=== PATIENT | female | born 1960 | race Caucasian/White ===

== ENCOUNTER → 2022-06-17 11:42 | Outpatient (CLI) | payer OTHER, SELFPAY ==
[2022-06-17 12:54] LABS: COVID19 -Nasal RAPID Negative (Negative)
== END ==
PROVIDERS: Referring Provider Orthopaedic Surgery Orthopaedic Surgery of the Spine; Visit Provider Orthopaedic Surgery Orthopaedic Surgery of the Spine
DX: Z20.822 Contact with and (suspected) exposure to COVID-19 (principal)
CPT/HCPCS: 87635; C9803

== ENCOUNTER 2022-06-19 11:15 | Inpatient (IN) | payer OTHER, SELFPAY ==
[2022-06-11 09:46] VITALS: BMI 18.6
[2022-06-19] VITALS (17 sets, daily range): BP systolic 117–171; BP diastolic 64–106; PULSE 67–101; RESP 14–20; TEMP 36.2–37.1; O2SAT 95–100; BMI 18.9; BMI 20.1
--- NOTE | 2022-06-19 | DI.RAD.S_ITS ---
PROCEDURE: XR CERVICAL SPINE 2V OR 3V INDICATIONS: C5-6 ACDF TECHNIQUE: 2 view(s) of the cervical spine were acquired. COMPARISON: None. FINDINGS: Intraoperative images demonstrate anterior fusion at C5-6 with intervertebral spacer. There is good anatomic alignment. IMPRESSION: Intraoperative fusion images. Dictated by: Danisha Funes M.D. on 06/19/2022 at 15:37 Approved by: Danisha Funes M.D. on 06/19/2022 at 15:37
[2022-06-19] MEDS: LACTATED RINGERS 1,000 ML 42 ML IV (11:36)
--- NOTE | 2022-06-19 12:09 | PM.PREOP ---
Pre-operative Note COVID-19 COVID-19 status: Negative Result date/Date tested (Pos, Neg/Pending): 06/19/22 Criteria for continued procedure: Expected advancement of disease process, Possibility delay results in more complex future surgery or treatment, Increased loss of function, Continuing or worsening of significant or severe pain, Deterioration of the patient's condition or overall health and Delay expected to result in less-positive ultimate med/surg outcome Interval Note History & Physical reviewed/Exam performed by Physician: Yes Changes to H&P: No
[2022-06-19] MEDS: SCOPOLAMINE 1 PATCH TOP (12:44)
[2022-06-19] MEDS: CEFAZOLIN 2 GM/100 ML PREMIX 100 ML IV (13:05)
[2022-06-19] MEDS: BUPIVACAINE 0.25% (PF) 30 ML, EPINEPHrine 0.3 MG INJ (13:15)
--- NOTE | 2022-06-19 13:21 | SUR.OPER ---
Supine on padded OR bed, head on gel donut, arms padded and tucked at sides, legs uncrossed, safety belt at thigh, tape over blanket over lower legs . Cloth tape used to hold traction down on shoulders.
--- NOTE | 2022-06-19 14:37 | P.OP_ITS ---
Operative Date/Time/Diagnoses Date of procedure: 06/19/22 Time of procedure: 12:30 Pre-op diagnosis: 1. C5-6 spinal stenosis 2. Cervical radiculopathy Post-op diagnosis: same Procedure & Clinicians Procedure: 1. C5-6 anterior cervical diskectomy and fusion 2. C5-6 anterior interbody cage placement 3. C5-6 anterior instrumentation with plate and screw placement in C5 and C6 vertebrae 4. Utilization of microsurgical technique and operating microscope Same procedure as scheduled: Yes Indications: Patient has been having neck pain and worsening cervical radiculopathy with MRI showing C5-6 spinal stenosis with correlating radiculopathy. Patient failed multiple conservative management with worsening pain weakness and numbness in her upper extremity. Patient has been having difficulty performing activity of daily living. After discussing risks benefits of treatment options, patient elected proceed with surgery. Surgeon: Naomy Simms Operations Administrator: Elroy Ruiz Click Yes if Unassisted: No Anesthesia Type: General Operative Notes Closure Type: primary Specimen(s): none sent Prosthetic devices, grafts, tissues, transplants, or devices: Globus Extend Plate, Titanium cage Estimated Blood Loss (mL): 5 Blood products transfused: none Procedure in detail: Patient was seen in the preoperative area. Risks and benefits of the surgery was discussed with the patient. Informed consent was obtained from the patient and placed in the chart. Surgical site was marked. Patient was taken to the operative room. General anesthesia was administered. Prophylactic antibiotic was given to the patient less than 30 min before the incision was made. Patient was placed into a supine position on a radiolucent table. Patient's shoulders were taped down to allow proper C-arm imaging. Anterior cervical area was prepped and draped in a sterile fashion. Time-out was performed at this time. Using lateral C-arm imaging, the level between C5 and C6 was identified and marked on patient's neck. A oblique incision from midline towards medial border of sternocleidomastoid muscle was made. The platysma muscle was incised in line with skin incision. Metzenbaum scissor was used to develop the plane between the medial border of sternocleidomastoid d and the strap muscles medially. The carotid sheath and its contents were identified and protected behind the hand- held retractor during the entire case. The plane between the carotid sheath and strap muscles was developed with Metzenbaum scissors. Dissection was made down to the level of the anterior cervical fascia. Longus colli muscle was incised on the anterior aspect of vertebral bodies bilaterally from C5-C6. Spinal needle was placed into the C5-6 disc space and confirmed with lateral C-arm imaging. Using microsurgical technique and operative microscope, anterior cervical diskectomy was performed at C5-6 level. This was done by removing the disc material, removing the anterior and posterior osteophytes posterior longitudinal ligaments along with performing bilateral foraminotomies at the C5-6 levels. Patient was found to have severe foraminal stenosis. Patient's stenosis was fully decompressed after decompression was completed. After the diskectomy was completed, an anterior interbody cage was obtained. The cage was packed with DBM bone grafting material. One cage each along with the bone grafting material was then packed into the interbody space at C5-6 along with an anterior cervical plate. The cervical plate was stabilized to the C5-C6 vertebrae using screws. After confirming placement of the hardware with AP and lateral C-arm imaging, the screws were locked into the plate using the locking mechanism and torque limiting screwdriver. After the hardware was placed and confirmed with AP and lateral C-arm imaging, the wound was irrigated with sterile normal saline. The platysma muscle and the subcutaneous tissue was closed with 2-0 Vicryl. The skin was closed with 4-0 Monocryl and Steri-Strips. Patient tolerated the procedure well. Patient was transferred recovery room in stable condition. There were no complications. Complications: none Post-operative Condition: stable Disposition: PACU Plan for aftercare: Discharge to home
[2022-06-19] MEDS: HYDROMORPHONE 2 MG INJ IV ×3 (14:49→15:02)
[2022-06-19] MEDS: hydrOXYzine 50 MG/ML INJ 25 MG IM (15:09)
[2022-06-19] MEDS: LORazepam 2 MG/ML INJ 0.5 MG IV (15:13)
[2022-06-19] MEDS: SODIUM CHLORIDE 0.9% 1,000 ML 100 ML IV (16:45)
[2022-06-19] MEDS: HYDROCODONE/ACET 5/325 TABLET 1 TAB PO ×2 (18:02→21:35)
[2022-06-19] MEDS: hydrOXYzine pamoate 25 MG CAPSULE PO (18:02)
[2022-06-19] MEDS: ONDANSETRON 4 MG/2 ML INJ IV (18:08)
[2022-06-19] MEDS: CEFAZOLIN VIAL 1 GM in SODIUM CHLORIDE 0.9% 100 ML IV (20:35)
[2022-06-19] MEDS: DOCUSATE 100 MG CAPSULE PO (20:35)
[2022-06-20 00:39] VITALS: BP 127/64; PULSE 71; RESP 18; TEMP 36.5; O2SAT 96
[2022-06-20] MEDS: hydrOXYzine pamoate 25 MG CAPSULE PO ×3 (00:42→10:57)
[2022-06-20] MEDS: HYDROCODONE/ACET 5/325 TABLET 1 TAB PO ×2 (01:13→06:15)
[2022-06-20] MEDS: CEFAZOLIN VIAL 1 GM in SODIUM CHLORIDE 0.9% 100 ML IV (05:22)
[2022-06-20 06:11] VITALS: BP 118/61; PULSE 72; RESP 16; TEMP 36.7; O2SAT 96
[2022-06-20] MEDS: HYDROMORPHONE 0.5 MG INJ 0.2 MG IV (07:54)
[2022-06-20 08:28] VITALS: BP 116/68; PULSE 69; RESP 17; TEMP 37.1; O2SAT 98
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
[2022-06-20] MEDS: HYDROMORPHONE 2 MG TABLET PO ×2 (09:35→12:22)
[2022-06-20] MEDS: ATORVASTATIN 20 MG TABLET PO (09:35)
[2022-06-20] MEDS: LEVOTHYROXINE 88 MCG TABLET PO (09:35)
[2022-06-20] MEDS: DOCUSATE 100 MG CAPSULE PO (09:35)
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
[2022-06-20] MEDS: ACETAMINOPHEN 325 MG TABLET 650 MG PO (10:56)
[2022-06-20] MEDS: HYDROMORPHONE 0.5 MG INJ IV (10:57)
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
[2022-06-20] MEDS: TIZANIDINE 4 MG TABLET 2 MG PO (12:22)
== END 2022-06-20 15:02 | disposition home or self-care (01) | DRG 321 ==
PROVIDERS: Admitting Provider Orthopaedic Surgery Orthopaedic Surgery of the Spine; PCP Student in an Organized Health Care Education/Training Program; Referring Provider Preventive Medicine Occupational Medicine; Visit Provider Orthopaedic Surgery Orthopaedic Surgery of the Spine
PROC: 0RG10A0 Fusion of Cervical Vertebral Joint with Interbody Fusion Device, Anterior Approach, Anterior Column, Open Approach (ICD-10-PCS; principal; 2022-06-19 12:45)
DX: M48.02 Spinal stenosis, cervical region (principal); M54.12 Radiculopathy, cervical region; E78.5 Hyperlipidemia, unspecified; E03.9 Hypothyroidism, unspecified; Z20.822 Contact with and (suspected) exposure to COVID-19
CPT/HCPCS: 72040; 76000; 82962; 97162; 97165; 97535; C1713; J0171; J0330; J0690; J1170; J2060; J2405; J2704; J3010; J3410

== ENCOUNTER 2025-01-18 08:50 | Outpatient (CLI) | payer OTHER, SELFPAY ==
[2022-06-19 16:17] VITALS: BMI 20.1
[2025-01-18] VITALS (17 sets, daily range): BP systolic 68–148; BP diastolic 50–78; PULSE 48–62; RESP 14–16; TEMP 36.5; O2SAT 97–100
[2025-01-18] MEDS: MIDAZOLAM 2 MG/2 ML VIAL IV (09:34)
[2025-01-18] MEDS: DEXAMETHASONE 10 MG/ML VIAL 30 MG INJ (09:41)
[2025-01-18] MEDS: iopamidoL 15 ML VIAL 3 ML INJ (09:41)
[2025-01-18] MEDS: BUPIVACAINE 0.25% (PF) VIAL 2 ML INJ (09:42)
--- NOTE | 2025-01-18 09:57 | P.PCN_ITS ---
Date/Time/Diagnoses Date of procedure: 01/18/25 Time of procedure: 09:57 Pre-procedure diagnosis: 1. CERVICAL STENOSIS, 2. CERVICAL HNP WITH UPPER EXTREMITY RADICULAR FEATURES Post-procedure diagnosis: same Procedure Notes Procedure: 1. FLUORSCOPICALLY GUIDED CONTRAST CONTROLLED INTERLAMINAR EPIDURAL STEROID INJECTION - C6/7 TL DANAY Indications: Zoe is referred by Dr. Mclaughlin for treatment of Cervical HNP with Upper Extremity Paresthesias. Physician: Agus Crain Total Fluoroscopy time (seconds): 31 Total sedation minutes: 18 Complications: none Procedure in detail & Post-procedure care: FINDINGS Cervical Stenosis due to disc deterioration and nerve root irritation and nerve root irritation DESCRIPTION OF PROCEDURE Fluoroscopically guided, contrast-controlled C6/7 translaminar epidural steroid injection with conscious sedation. Following review of allergy and review of potential side effects and complications, including, but not necessarily limited to, infection, allergic reaction, local tissue breakdown, temporary as well as permanent nerve injury, stroke, paralysis, and possible , the patient indicated that patient understood and agreed to proceed. An informed consent document was signed by the patient, witnessed by a nurse, and placed in the patient's chart. Additionally, other treatment options including modalities, medications, and physical therapy were reviewed with the patient. After review of previous anaesthesic history and IV conscious sedation the patient was deemed safe to proceed with today?s procedure with IV conscious sedation as ASA class II designation. Safety time-out was performed to confirm patient ID, procedure to be performed and site of procedure. IV sedation was accomplished with a combination of 2mg of Versed administered by the RN after DO order, titrated to patient comfort during the course of the procedure while the patient remained responsive to all verbal commands. In the prone position, following sterile prep and drape of the cervical region, the C6/7 translaminar space was identified fluoroscopically. The skin was anesthetized via a 25-gauge 1.5-inch needle with 1% lidocaine solution. At this point, a 25-gauge, 2.5-inch short bevel spinal needle was atraumatically introduced and advanced under fluoroscopic guidance into epidural space at the C6/7 translaminar space. Depth was confirmed on lateral view. Radiological data, including multiple fluoroscopic views of the cervical spine, reveal a spinal needle at the C6/7 translaminar space. Lateral views then show placement of the needle in the epidural space. Subsequent views show contrast material flowing superiorly and inferiorly in the epidural space. DSA fluoroscopy with live contrast injection, once again, confirmed no vascular or intrathecal uptake. At this point, using loss of resistance technique with saline and air, the epidural space was entered. Following negative aspiration, injection of approximately 1.5 cc of Isovue-200 with live fluoroscopy in the AP view confirmed epidural flow in the epidural space without vascular or intrathecal uptake observed. Subsequently, a test dose of 1 cc of 1% lidocaine solution was injected and patient was observed for two minutes without signs or symptoms of complications, including abdominal pain, shortness of breath, bilateral upper or lower extremity weakness, nausea and vomiting, prior to steroid injection. At this point, 3cc or 30mg of dexamethasone was then injected without incident. The patient tolerated the procedure well without signs or symptoms of complic ations prior to being transferred to the recovery area for further monitoring, The patient was then transferred to the recovery area where they were observed for an appropriate period of time after the injection. The patient reported a VAS score of 6 prior to the procedure and a post-procedure VAS of 0. POST OP INSTRUCTIONS The patient was provided a Pain Log to continue to record their response to the target-specific procedure prior to follow-up visit with the referring provider. Additionally, specific post-injection care instructions and a contact number to our office were provided if concerns arise regarding possible complications associated with the procedure are suspected.
[2025-01-18] MEDS: SODIUM CHLORIDE 0.9% 500 ML IV (11:03)
--- NOTE | 2025-01-18 11:07 | PC.NURSE ---
Pt initially came back post procedure with low bp. Dr Crain notified and to bedside to assess patient with self. Initially placed on non rebreather and fluids per MD order started. BP with multiple rechecks and VSS and patient AOX4. O2 Sats now at 98%. Patient feeling better and held to continue assessment. Dr Crain back for recheck and VS wnl and documented in chart. Pt escorted to front entrance via and family assist in vehicle ambulatory into truck without difficulty.
== END 2025-01-18 10:50 | disposition home or self-care (01) ==
PROVIDERS: PCP Student in an Organized Health Care Education/Training Program; Referring Provider Physical Medicine & Rehabilitation; Visit Provider Physical Medicine & Rehabilitation
DX: M48.02 Spinal stenosis, cervical region (principal); M50.123 Cervical disc disorder at C6-C7 level with radiculopathy
CPT/HCPCS: 62321; 99152; J1100; J2250